=== PATIENT | female | born 1980 | race Caucasian/White ===

== ENCOUNTER 2019-05-19 09:06 | Emergency (ER) | payer SELFPAY ==
[~2019-05-19] VITALS: Ht 162.6 cm; Wt 72.6 kg
[2019-05-19 09:26] VITALS: BP 118/70
--- NOTE | 2019-05-19 10:08 | PHYS DOC ---
Past Medical History Past Medical History: No Pertinent History, Unknown Past Surgical History: Other Additional Past Surgical Histo: BLADDER MESH (2009) Alcohol Use: None Drug Use: None, Heroin Adult General Chief Complaint Chief Complaint: ABDOMINAL PAIN HPI HPI Patient is a 38 year old female who presents to the emergency department, via EMS with complaints of pelvic pain. Patient denies any irregular vaginal discharge, dysuria, increased urinary frequency, vaginal odor, hematuria, nausea, vomiting, diarrhea, chest pain, shortness of breath, or fever. Patient states she left [facility] AMA because she did not like her nurse. Patient states she had been admitted to to evaluate her bladder mesh, but she left before the testing was complete. She is unsure when her last menstrual period was, she is also unsure when her last bowel movement was. Patient currently rates her pain a 10 out of 10 on the pain scale and states that no thing makes the pain better or worse. Patient reports a history of methamphetamine use, states she last smoked methamphetamine 2 or 3 days ago. She also smokes cigarettes about half pack a day. She denies any alcohol use or other drug use. Review of Systems Review of Systems Constitutional: Denies fever or chills [] Eyes: Denies redness, or eye pain [] HENT: Denies nasal congestion or sore throat [] Respiratory: Denies cough or shortness of breath [] Cardiovascular: No additional information not addressed in HPI [] GI: Denies nausea, vomiting, bloody stools or diarrhea; reports pelvic pain[] : Denies dysuria, increased urinary frequency, foul smelling urine, hematuria, vaginal odor, or irregular vaginal discharge Musculoskeletal: reports low back pain Integument: Denies rash or skin lesions [] Neurologic: Denies headache, focal weakness or sensory changes [] Complete systems were reviewed and found to be within normal limits, except as documented in this note. Allergies Allergies Allergies Coded Allergies Type Severity Reaction Last Updated Verified Sulfa (Sulfonamide Antibiotics) Allergy Unknown Unknown 05/19/19 Yes Physical Exam Physical Exam Constitutional: Well developed, well nourished, no acute distress, non-toxic appearance, hyperverbal. [] HENT: Normocephalic, atraumatic, bilateral external ears normal, nose normal. [] Eyes: conjunctiva normal, no discharge. [] Neck: Normal range of motion, no stridor. [] Cardiovascular:Heart rate regular rhythm, no murmur [] Lungs & Thorax: Bilateral breath sounds clear to auscultation [] Abdomen: Bowel sounds normal, soft, suprapubic tenderness, no guarding, no rebound tenderness, no masses, no pulsatile masses. [] Skin: Warm, dry, no erythema, no rash. [] Back: No CVA tenderness. [] Extremities: No cyanosis, no clubbing, ROM intact, no edema. [] Neurologic: Alert and oriented X 3, no focal deficits noted. [] Psychologic: Affect paranoid, judgement normal Current Patient Data Vital Signs Vital Signs Date Time Temp Pulse Resp B/P (MAP) Pulse Ox O2 Delivery O2 Flow Rate FiO2 05/19/19 09:26 98.1 109 18 118/70 (86) 99 Room Air 98.1 Lab Values Laboratory Tests Test 05/19/19 09:30 05/19/19 10:24 Urine Collection Type Unknown Urine Color Guera Urine Clarity Clear Urine pH 5.0 Urine Specific [place] >=1.030 Urine Protein 30 mg/dL (NEG-TRACE) Urine Glucose (UA) Negative mg/dL (NEG) Urine Ketones (Stick) Trace mg/dL (NEG) Urine Blood Negative (NEG) Urine Nitrite Negative (NEG) Urine Bilirubin Negative (NEG) Urine Urobilinogen Dipstick 0.2 mg/dL (0.2 mg/dL) Urine Leukocyte Esterase Negative (NEG) Urine RBC 0 /HPF (0-2) Urine WBC 0 /HPF (0-4) Urine Bacteria 0 /HPF (0-FEW) Urine Opiates Screen Neg (NEG) Urine Methadone Screen Neg (NEG) Urine Barbiturates Neg (NEG) Urine Phencyclidine Screen Neg (NEG) Urine Amphetamine/Methamphetamine Pos (NEG) Urine Benzodiazepines Screen Neg (NEG) Urine Cocaine Screen Neg (NEG) Urine Cannabinoids Screen Neg (NEG) Urine Ethyl Alcohol Neg (NEG) Urine Test Negative (NEG) EKG EKG [] Radiology/Procedures Radiology/Procedures [] Course & Med Decision Making Course & Med Decision Making Pertinent Labs and Imaging studies reviewed. (See chart for details) 1055-pt left AMA [] Dragon Disclaimer Dragon Disclaimer This electronic medical record was generated, in whole or in part, using a voice recognition dictation system. Departure Departure Impression: Primary Impression: Left against medical advice Disposition: AGAINST MEDICAL ADVICE Condition: STABLE Referrals: NO PCP (PCP) PHYLLIS ESGURA CHILD CARE DIRECTOR May 19, 2019 10:08
[2019-05-19 10:17] LABS: BILIRUBIN,URINE NEGATIVE (NEG); CLARITY,URINE CLEAR; COLOR,URINE AMBER; NITRITE,URINE NEGATIVE (NEG); PROTEIN,URINE 30 mg/dL (NEG-TRACE); UROBILINOGEN,URINE 0.2 mg/dL (0.2 mg/dL)
[2019-05-19 10:23] LABS: BARBITURATES NEG (NEG); BENZODIAZEPINES NEG (NEG); CANNABINOIDS NEG (NEG); COCAINE NEG (NEG); METHADONE NEG (NEG); OPIATES NEG (NEG); PHENCYCLIDINE NEG (NEG)
[2019-05-19 10:24] LABS: AMPHETAMINE/METHAMPHETAMINE POS (NEG)
[2019-05-19 10:26] LABS: BACTERIA,URINE 0 /HPF (0-FEW); RBC,URINE 0 /HPF (0-2); WBC,URINE 0 /HPF (0-4)
[2019-05-19 10:36] LABS: U PREG PATIENT NEGATIVE (NEG)
== END 2019-05-19 10:55 | disposition left against medical advice (07) ==
LOC: ER 09:06
DX: R10.2 Pelvic and perineal pain (principal); M54.5 Low back pain; F15.10 Other stimulant abuse, uncomplicated; F17.210 Nicotine dependence, cigarettes, uncomplicated; Z88.2 Allergy status to sulfonamides
CPT/HCPCS: 80307; 81001; 81025; 99284

== ENCOUNTER 2021-03-29 18:08 | Inpatient (IN) | payer OTHER ==
[~2021-03-29] VITALS: Ht 165.1 cm; Wt 71.2 kg
[2021-03-29] MEDS ORDERED: MULTIVIT INFUSN,ADULT 4,VIT K 10 ML, THIAMINE INJ 100 MG, FOLIC ACID INJ 1 MG in IV NOR... IV ONE (18:30)
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
[2021-03-29 19:36] LABS: BILIRUBIN,URINE NEGATIVE (NEG); CLARITY,URINE CLEAR; COLOR,URINE YELLOW; NITRITE,URINE NEGATIVE (NEG); PROTEIN,URINE NEGATIVE (NEG-TRACE); UROBILINOGEN,URINE 0.2 mg/dL (0.2 mg/dL)
[2021-03-29 19:42] LABS: BARBITURATES NEG (NEG); BENZODIAZEPINES POS (NEG); CANNABINOIDS POS (NEG); COCAINE NEG (NEG); METHADONE NEG (NEG); OPIATES NEG (NEG); PHENCYCLIDINE NEG (NEG)
[2021-03-29 19:43] LABS: BACTERIA,URINE 0 /HPF (0-FEW); RBC,URINE 0 /HPF (0-2); WBC,URINE OCC /HPF (0-4)
[2021-03-29 19:45] LABS: AMPHETAMINE/METHAMPHETAMINE NEG (NEG)
[2021-03-29 19:55] LABS: BASO # 0.1 x10^3/uL (0.0-0.2); BASO % 1 % (0-3); EOS # 0.2 x10^3/uL (0.0-0.7); EOS % 1 % (0-3); HEMATOCRIT 36.7 % (36.0-47.0); HEMOGLOBIN 12.2 g/dL (12.0-15.5); LYMPH # 4.2 x10^3/uL (1.0-4.8); LYMPH % 24 % (24-48); MEAN CORPUSCULAR HEMOGLOBIN 19 pg (25-35); MEAN CORPUSCULAR HGB CONC 33 g/dL (31-37); MEAN CORPUSCULAR VOLUME 57 fL (79-100); MONO # 1.4 x10^3/uL (0.0-1.1); MONO % 8 % (0-9); NEUT # 11.8 x10^3/uL (1.8-7.7); NEUT % 67 % (31-73); PLATELET COUNT 576 x10^3/uL (140-400); RED BLOOD COUNT 6.47 x10^6/uL (3.50-5.40); WHITE BLOOD COUNT 17.7 x10^3/uL (4.0-11.0)
[2021-03-29 20:09] LABS: ACETAMIN < 2 mcg/ml (10-30); SALIC < 2.8 mg/dL (2.8-20.0)
[2021-03-29 20:10] LABS: ALBUMIN 4.4 g/dL (3.4-5.0); ALBUMIN/GLOBULIN RATIO 1.1 (1.0-1.7); CALCIUM 9.1 mg/dL (8.5-10.1); CREATININE 0.7 mg/dL (0.6-1.0); GFR 91.8; TOTAL PROTEIN 8.3 g/dL (6.4-8.2)
[2021-03-29 20:19] LABS: CREATINE KINASE 33 U/L (26-192)
[2021-03-29] MEDS ORDERED: POTASSIUM CHLORIDE 10 MEQ TABLET.ER. PO ONE (20:30)
--- NOTE | 2021-03-29 20:30 | RAD ---
EXAM: Chest, single view. HISTORY: Altered mental status. COMPARISON: None. FINDINGS: A frontal view of the chest is obtained. There is no infiltrate, protrusion or pneumothorax . The heart is normal in size. There are few calcified granulomas. IMPRESSION: No acute pulmonary finding. Electronically signed by: Teri Abel MD (03/29/2021 8:28 PM) [facility]
--- NOTE | 2021-03-29 20:31 | RAD ---
EXAM: Head CT without contrast. HISTORY: Altered mental status. TECHNIQUE: Computed tomographic images of the head were obtained without contrast. *One or more of the following individualized dose reduction techniques were utilized for this examina tion: 1. Automated exposure control. 2. Adjustment of the mA and/or kV according to patient size. 3. Use of iterative reconstruction technique. COMPARISON: 03/23/2010. FINDINGS: There is no acute or subacute extra-axial or intraparenchymal hemorrhage. There is no mass effect or midline shift. There is no hydrocephalus. The glaser-white matter differentiation pattern is intact. There is moderate to severe left maxillary sinus mucosal thickening, partially included on the field- of-view. The mastoid air cells are clear. There is no suspicious calvarial lesion. IMPRESSION: No acute intracranial finding. Note is made that MRI is more sensitive for acute infarcti on. Electronically signed by: Teri Abel MD (03/29/2021 8:28 PM) [facility]
[2021-03-29 20:37] LABS: HYPOCHROMIA MARKED; MICROCYTOSIS MARKED; PLT ESTIMATE INCREASED (ADEQUATE)
--- NOTE | 2021-03-29 20:59 | EKG ---
[facility] [address] [place] [address] Test Date: 2021-03-29 Test Time: 20:43:09 Pat Name: DARIUSZ MCDERMOTT Department: Room: Gender: F Typing Section Chief: : 1980 Requested By: RY CUMMINGS Order Number: [id number] Reading MD: Measurements Intervals [place] Rate: 71 P: 57 IN: 136 QRS: 44 QRSD: 86 T: 64 QT: 406 QTc: 441 Interpretive Statements SINUS RHYTHM R-S TRANSITION ZONE IN V LEADS DISPLACED TO THE RIGHT OTHERWISE NORMAL ECG RI6.02 No previous ECG available for comparison
[2021-03-29] MEDS ORDERED: ONDANSETRON PF 4 MG/2 ML VIAL. IV PRN (23:30)
[2021-03-29] MEDS ORDERED: ZIPRASIDONE IM 20 MG VIAL. IM ONE (23:45)
[2021-03-30] MEDS ORDERED: POTASSIUM CHLORIDE 10MEQ 100 ML IV SCH
[2021-03-30 02:05] VITALS: BP 96/60
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
[2021-03-30 07:00] VITALS: BP 106/68
[2021-03-30] MEDS: POTASSIUM CHLORIDE 20 MEQ TABLET.ER. PO SCH ×2 (08:41→10:19)
[2021-03-30] MEDS: FAMOTIDINE 20 MG TABLET. PO SCH ×2 (08:41→20:58)
[2021-03-30 11:00] VITALS: BP 110/68
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
[2021-03-30 15:00] VITALS: BP 114/73
[2021-03-30 19:00] VITALS: BP 102/62
[2021-03-30 23:03] VITALS: BP 125/85
[2021-03-31 03:11] VITALS: BP 108/67
[2021-03-31 07:30] VITALS: BP 115/84
[2021-03-31] MEDS: FAMOTIDINE 20 MG TABLET. PO SCH (08:27)
[2021-03-31] MEDS ORDERED: POTASSIUM CHLORIDE 20 MEQ TABLET.ER. PO ONE (10:30)
[2021-03-31] MEDS ORDERED: FAMO20TA5 PO (10:57)
[2021-03-31 11:00] VITALS: BP 107/69
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
--- NOTE | 2021-03-31 12:45 | NUR ---
SW following. Discussed with RN, pt from home with boyfriend, room air, cardiac diet. Pt refusing labs and IV, wants to discharge. Ramy (PAT) met with pt, pt feels depressed but no SI, feels safe going home. Ramy reported during the conversation pt's eyes would sometimes glaze over and she would start muttering to herself. Pt has been current with [facility] in the past. Pt left [facility] and [facility] resources for RN to give to pt's mother who is coming to collect her. Discharge order for home with self care. RN advised no SW needs at this time.
--- NOTE | 2021-03-31 13:24 | NUR ---
Pt got read discharge packet and had no questions/concerns. Heart monitor was taken off. Pt was stable when leaving unit. This RN gave pt's mother her discharge paperwork.
== END 2021-03-31 13:10 | disposition home or self-care (01) | DRG 640 ==
LOC: ER 18:08 → 6 SOUTH 23:43
PROVIDERS: ADMIT Internal Medicine; ATTEND Internal Medicine
DX: E87.6 Hypokalemia (principal); G93.41 Metabolic encephalopathy; D72.829 Elevated white blood cell count, unspecified; F32.9 Major depressive disorder, single episode, unspecified; R41.82 Altered mental status, unspecified; F41.9 Anxiety disorder, unspecified; F19.10 Other psychoactive substance abuse, uncomplicated; Z82.49 Family history of ischemic heart disease and other diseases of the circulatory system; Z99.3 Dependence on wheelchair; Z88.2 Allergy status to sulfonamides
CPT/HCPCS: 36415; 70450; 71045; 80053; 80307; 80329; 81001; 81025; 82140; 82553; 83605; 83735; 84484; 85025; 93005; 96365; 96372; 96375; G0480; J2060; J3411; J3486; J3490; J7030; 99285-25; G0378

== ENCOUNTER 2021-10-24 09:28 | Inpatient (IN) | payer OTHER ==
[~2021-10-24] VITALS: Ht 167.6 cm; Wt 91.9 kg
[~2021-10-24 09:28] MED LIST: FAMO20TA5 PO
[2021-10-24] MEDS ORDERED: IV NORMAL SALINE 1000ML BAG 1,000 ML IV ONE (10:00)
[2021-10-24] MEDS ORDERED: HALOPERIDOL LACTATE 5 MG/ML VIAL. ONE (10:09)
[2021-10-24] MEDS ORDERED: HALOPERIDOL LACTATE 5 MG/ML VIAL. IM ONE (10:15)
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
[2021-10-24 11:54] LABS: BASO # 0.1 x10^3/uL (0.0-0.2); BASO % 1 % (0-3); EOS # 0.2 x10^3/uL (0.0-0.7); EOS % 1 % (0-3); HEMATOCRIT 37.7 % (36.0-47.0); HEMOGLOBIN 12.2 g/dL (12.0-15.5); LYMPH # 2.5 x10^3/uL (1.0-4.8); LYMPH % 14 % (24-48); MEAN CORPUSCULAR HEMOGLOBIN 19 pg (25-35); MEAN CORPUSCULAR HGB CONC 32 g/dL (31-37); MEAN CORPUSCULAR VOLUME 60 fL (79-100); MONO # 1.4 x10^3/uL (0.0-1.1); MONO % 7 % (0-9); NEUT # 14.5 x10^3/uL (1.8-7.7); NEUT % 77 % (31-73); PLATELET COUNT 390 x10^3/uL (140-400); RED CELL DISTRIBUTION WIDTH 14.6 % (11.5-14.5); WHITE BLOOD COUNT 18.7 x10^3/uL (4.0-11.0)
[2021-10-24 12:08] LABS: CALCIUM 8.9 mg/dL (8.5-10.1); CREATININE 0.7 mg/dL (0.6-1.0); GFR 91.8
[2021-10-24 12:12] LABS: CLARITY,URINE CLEAR; COLOR,URINE ORANGE
[2021-10-24 12:16] LABS: ACETAMIN < 2.0 mcg/ml (10-30); ETHANOL < 10 mg/dL (0-10); POTASSIUM 2.8 mmol/L (3.5-5.1); SALIC 3.6 mg/dL (2.8-20.0)
[2021-10-24 12:17] LABS: BARBITURATES NEG (NEG); BENZODIAZEPINES NEG (NEG); CANNABINOIDS POS (NEG); COCAINE NEG (NEG); METHADONE NEG (NEG); OPIATES NEG (NEG); PHENCYCLIDINE NEG (NEG)
[2021-10-24 12:18] LABS: AMPHETAMINE/METHAMPHETAMINE POS (NEG)
[2021-10-24 12:35] LABS: BACTERIA,URINE MODERATE /HPF (0-FEW); HYALINE CASTS, URINE MODERATE /HPF; RBC,URINE 0 /HPF (0-2)
[2021-10-24 12:39] LABS: ALBUMIN 4.2 g/dL (3.4-5.0); DIRECT BILIRUBIN 0.7 mg/dL (0.0-0.2); TOTAL PROTEIN 8.5 g/dL (6.4-8.2)
[2021-10-24 12:58] LABS: % BASOS 1 % (0-3); % EOS 1 % (0-5); % LYMPHS 20 % (24-48); % MONOS 4 % (0-10); % SEGS 74 % (35-66); PLT ESTIMATE ADEQUATE (ADEQUATE)
[2021-10-24 12:59] LABS: HYPOCHROMIA PRESENT; MICROCYTOSIS PRESENT
[2021-10-24] MEDS ORDERED: PIPERACILLIN/TAZOBACTAM 3.375 GM in IV NORMAL SALINE 50ML 50 ML IV ONE (13:00)
[2021-10-24] MEDS ORDERED: ACETAMINOPHEN 325 MG TABLET. PO PRN (13:15)
--- NOTE | 2021-10-24 14:17 | RAD ---
EXAMINATION: Chest radiograph. VIEWS: 1 COMPARISON: 10/29/2020 INDICATION:40 years, Female, Altered mental status. FINDINGS: Low lung volume, may accentuate cardiac silhouette and pulmonary vascularity. Normal cardiomediastina l silhouette. Similar calcified granulomas in the left lung. No focal consolidation. No pleural effus ion or pneumothorax. No acute osseous process. IMPRESSION: No acute cardiopulmonary process. Electronically signed by: Clover Walters MD (10/24/2021 2:15 PM) [facility]
[2021-10-24] MEDS: POTASSIUM CHLORIDE 20MEQ 100 ML IV SCH ×2 (14:41→21:40)
--- NOTE | 2021-10-24 14:51 | EKG ---
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
[2021-10-24] MEDS ORDERED: HALOPERIDOL 2 MG TABLET. PO PRN (16:30)
[2021-10-24 17:43] VITALS: BP 124/67
[2021-10-24 19:35] VITALS: BP 99/66
[2021-10-24] MEDS: ENOXAPARIN 40 MG/0.4 ML SYRINGE. SQ SCH (21:00)
[2021-10-24] MEDS: risperiDONE 1 MG TABLET. PO SCH (21:39)
[2021-10-24] MEDS: cefTRIAXone IV Push 1 GM VIAL. IVP SCH (22:29)
[2021-10-24 23:28] VITALS: BP 96/64
[2021-10-25 05:00] LABS: BASO % 1 % (0-3); EOS # 0.4 x10^3/uL (0.0-0.7); EOS % 5 % (0-3); HEMATOCRIT 35.1 % (36.0-47.0); LYMPH # 2.4 x10^3/uL (1.0-4.8); LYMPH % 24 % (24-48); MEAN CORPUSCULAR HEMOGLOBIN 19 pg (25-35); MEAN CORPUSCULAR HGB CONC 31 g/dL (31-37); MEAN CORPUSCULAR VOLUME 62 fL (79-100); MONO # 0.9 x10^3/uL (0.0-1.1); MONO % 9 % (0-9); NEUT # 6.2 x10^3/uL (1.8-7.7); NEUT % 62 % (31-73); PLATELET COUNT 303 x10^3/uL (140-400); RED BLOOD COUNT 5.67 x10^6/uL (3.50-5.40)
[2021-10-25 05:29] LABS: SALIC 5.8 mg/dL (2.8-20.0)
[2021-10-25 05:31] LABS: ALBUMIN 3.6 g/dL (3.4-5.0); ALBUMIN/GLOBULIN RATIO 0.9 (1.0-1.7); CALCIUM 8.2 mg/dL (8.5-10.1); CREATININE 0.6 mg/dL (0.6-1.0); GFR 109.6; TOTAL BILIRUBIN 1.1 mg/dL (0.2-1.0); TOTAL PROTEIN 7.5 g/dL (6.4-8.2)
[2021-10-25 11:01] VITALS: BP 93/53
[2021-10-25] MEDS ORDERED: POTASSIUM CHLORIDE 20 MEQ TABLET.ER. PO ONE ×2 (13:00→17:30)
--- NOTE | 2021-10-25 14:04 | PDOC ---
[employer] PROGRESS NOTE Date of Service DOS: DATE: 10/25/21 TIME: 14:03 Chief Complaint Chief Complaint acute psychosis, schizophrenia, not on meds recently meth abuse , THC abuse toxic encephalopathy UTI, SIRS sepsis, zosyn started, urine too dirty microcytic red cells, likely thalassemia obese, BMI 31 History of Present Illness History of Present Illness try to stop the 1:1 and try to DC if able pt and OT ordered, weak, fall risk Vitals/I&O Vitals/I&O: Vital Signs Date Time Temp Pulse Resp B/P (MAP) Pulse Ox O2 Delivery O2 Flow Rate FiO2 10/25/21 11:01 93 16 93/53 (66) 93 Room Air 10/25/21 09:58 97.1 97.1 I & O 10/24/21 10/24/21 10/25/21 15:00 23:00 07:00 Intake Total 240 ml 1650 ml Balance 240 ml 1650 ml Physical Exam Physical Exam: face appears brighter, she is coherent of speech, much better General: Alert, Oriented X3, Cooperative, No acute distress, Other (obtunded, then confused when awakened) Heart: Regular rate Lungs: Clear, Other Extremities: No clubbing, No edema Skin: No rashes, No significant lesion Labs Labs: Laboratory Tests Test 10/25/21 04:00 White Blood Count 10.0 x10^3/uL (4.0-11.0) Red Blood Count 5.67 x10^6/uL (3.50-5.40) Hemoglobin 11.0 g/dL (12.0-15.5) Hematocrit 35.1 % (36.0-47.0) Mean Corpuscular Volume 62 fL (79-100) Mean Corpuscular Hemoglobin 19 pg (25-35) Mean Corpuscular Hemoglobin Concent 31 g/dL (31-37) Red Cell Distribution Width 15.0 % (11.5-14.5) Platelet Count 303 x10^3/uL (140-400) Neutrophils (%) (Auto) 62 % (31-73) Lymphocytes (%) (Auto) 24 % (24-48) Monocytes (%) (Auto) 9 % (0-9) Eosinophils (%) (Auto) 5 % (0-3) Basophils (%) (Auto) 1 % (0-3) Neutrophils # (Auto) 6.2 x10^3/uL (1.8-7.7) Lymphocytes # (Auto) 2.4 x10^3/uL (1.0-4.8) Monocytes # (Auto) 0.9 x10^3/uL (0.0-1.1) Eosinophils # (Auto) 0.4 x10^3/uL (0.0-0.7) Basophils # (Auto) 0.0 x10^3/uL (0.0-0.2) Prothrombin Time 14.0 SEC (11.7-14.0) Prothromb Time International Ratio 1.1 (0.8-1.1) Activated Partial Thromboplast Time 34 SEC (24-38) Sodium Level 138 mmol/L (136-145) Potassium Level 3.0 mmol/L (3.5-5.1) Chloride Level 101 mmol/L (98-107) Carbon Dioxide Level 27 mmol/L (21-32) Anion Gap 10 (6-14) Blood Urea Nitrogen 13 mg/dL (7-20) Creatinine 0.6 mg/dL (0.6-1.0) Estimated GFR (Cockcroft-Gault) 109.6 BUN/Creatinine Ratio 22 (6-20) Glucose Level 91 mg/dL (70-99) Calcium Level 8.2 mg/dL (8.5-10.1) Total Bilirubin 1.1 mg/dL (0.2-1.0) Aspartate Amino Transf (AST/SGOT) 44 U/L (15-37) Alanine Aminotransferase (ALT/SGPT) 55 U/L (14-59) Alkaline Phosphatase 138 U/L (46-116) Total Protein 7.5 g/dL (6.4-8.2) Albumin 3.6 g/dL (3.4-5.0) Albumin/Globulin Ratio 0.9 (1.0-1.7) Salicylates Level 5.8 mg/dL (2.8-20.0) Salicylate Last Dose Date Unknown Salicylate Last Dose Time Unknown Assessment and Plan Assessmemt and Plan Problems Medical Problems: (1) Amphetamine abuse Status: Acute (2) Hypokalemia Status: Acute (3) Marijuana abuse Status: Acute (4) Psychosis Status: Acute Comment Review of Relevant I have reviewed the following items bib (where applicable) has been applied. Medications: Current Medications Medications (Trade) Dose Ordered Sig/Flo Route PRN Reason Start Time Stop Time Status Last Admin Dose Admin Risperidone (RisperDAL) 1 mg HS PO 10/24/21 21:00 10/24/21 21:39 Lorazepam (Ativan Inj) 1 mg PRN Q4HRS PRN IVP ANXIETY / AGITATION 10/24/21 16:30 10/24/21 22:12 Ceftriaxone Sodium (Rocephin) 1 gm Q24H IVP 10/24/21 18:00 10/24/21 22:29 Potassium Chloride (Klor-Con) 40 meq 1X ONCE PO 10/25/21 13:00 10/25/21 13:01 DC 10/25/21 13:28 Justifications for Admission Other Justification MARICHUY RASHEED MD Oct 25, 2021 14:04
[2021-10-25 15:00] VITALS: BP 100/55
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
[2021-10-25] MEDS: cefTRIAXone IV Push 1 GM VIAL. IVP SCH (17:17)
[2021-10-25 19:00] VITALS: BP 102/56
[2021-10-25] MEDS: risperiDONE 1 MG TABLET. PO SCH (20:17)
[2021-10-25] MEDS: ENOXAPARIN 40 MG/0.4 ML SYRINGE. SQ SCH (20:17)
[2021-10-25] MEDS: LACTOBACILLUS RHAMNOSUS GG 1 CAPSULE. PO SCH (20:17)
--- NOTE | 2021-10-25 22:44 | NUR ---
Assumed care of the patient A&OX4 in bed resting quietly watching television. Denies any voices or any discomfort. Refused to take Lovenox injection just stated. " I am not taking that shot." Call valdez is in reach not acute distress noted will continue to monitor.
[2021-10-25 23:00] VITALS: BP 96/58
[2021-10-26 03:00] VITALS: BP 88/61
[2021-10-26 07:00] VITALS: BP 89/55
[2021-10-26] MEDS: LACTOBACILLUS RHAMNOSUS GG 1 CAPSULE. PO SCH (10:15)
[2021-10-26 11:00] VITALS: BP 100/52
[2021-10-26] MEDS ORDERED: RISP1TAB88 PO (12:36)
--- NOTE | 2021-10-26 12:38 | PDOC3 ---
Discharge Summary Visit Information Date of Admission: Oct 24, 2021 Date of Discharge: Oct 26, 2021 Final Diagnosis acute psychosis, schizophrenia, not on meds recently meth abuse , THC abuse toxic encephalopathy microcytic red cells, thalassemia obese, BMI 31 History of Present Illness History of Present Illness try to stop the 1:1 and try to DC if able Problems Medical Problems: (1) Amphetamine abuse Status: Acute (2) Hypokalemia Status: Acute (3) Marijuana abuse Status: Acute (4) Psychosis Status: Acute Brief Hospital Course Allergies Allergies Coded Allergies Type Severity Reaction Last Updated Verified Sulfa (Sulfonamide Antibiotics) Allergy Intermediate 03/30/21 Yes Vital Signs Vital Signs Date Time Temp Pulse Resp B/P (MAP) Pulse Ox O2 Delivery O2 Flow Rate FiO2 10/26/21 08:00 Room Air 10/26/21 07:00 98.2 67 16 89/55 (66) 100 98.2 Lab Results Laboratory Tests Test 10/24/21 13:56 10/25/21 04:00 Lactic Acid Level 1.0 mmol/L (0.4-2.0) White Blood Count 10.0 x10^3/uL (4.0-11.0) Red Blood Count 5.67 x10^6/uL (3.50-5.40) Hemoglobin 11.0 g/dL (12.0-15.5) Hematocrit 35.1 % (36.0-47.0) Mean Corpuscular Volume 62 fL (79-100) Mean Corpuscular Hemoglobin 19 pg (25-35) Mean Corpuscular Hemoglobin Concent 31 g/dL (31-37) Red Cell Distribution Width 15.0 % (11.5-14.5) Platelet Count 303 x10^3/uL (140-400) Neutrophils (%) (Auto) 62 % (31-73) Lymphocytes (%) (Auto) 24 % (24-48) Monocytes (%) (Auto) 9 % (0-9) Eosinophils (%) (Auto) 5 % (0-3) Basophils (%) (Auto) 1 % (0-3) Neutrophils # (Auto) 6.2 x10^3/uL (1.8-7.7) Lymphocytes # (Auto) 2.4 x10^3/uL (1.0-4.8) Monocytes # (Auto) 0.9 x10^3/uL (0.0-1.1) Eosinophils # (Auto) 0.4 x10^3/uL (0.0-0.7) Basophils # (Auto) 0.0 x10^3/uL (0.0-0.2) Prothrombin Time 14.0 SEC (11.7-14.0) Prothromb Time International Ratio 1.1 (0.8-1.1) Activated Partial Thromboplast Time 34 SEC (24-38) Sodium Level 138 mmol/L (136-145) Potassium Level 3.0 mmol/L (3.5-5.1) Chloride Level 101 mmol/L (98-107) Carbon Dioxide Level 27 mmol/L (21-32) Anion Gap 10 (6-14) Blood Urea Nitrogen 13 mg/dL (7-20) Creatinine 0.6 mg/dL (0.6-1.0) Estimated GFR (Cockcroft-Gault) 109.6 BUN/Creatinine Ratio 22 (6-20) Glucose Level 91 mg/dL (70-99) Calcium Level 8.2 mg/dL (8.5-10.1) Total Bilirubin 1.1 mg/dL (0.2-1.0) Aspartate Amino Transf (AST/SGOT) 44 U/L (15-37) Alanine Aminotransferase (ALT/SGPT) 55 U/L (14-59) Alkaline Phosphatase 138 U/L (46-116) Total Protein 7.5 g/dL (6.4-8.2) Albumin 3.6 g/dL (3.4-5.0) Albumin/Globulin Ratio 0.9 (1.0-1.7) Salicylates Level 5.8 mg/dL (2.8-20.0) Salicylate Last Dose Date Unknown Salicylate Last Dose Time Unknown Brief Hospital Course Ms. Hayward is a 41 old admit with acute psychosis, meth and THC use, and off her home meds Discharge Information Condition at Discharge: Improved Follow Up: Weeks Disposition/Orders: D/C to Home Scheduled Famotidine (Famotidine) 20 Mg Tablet, 20 MG PO BID for gerd for 30 Days, #60 Prescribed by: VALERIE DOWELL on 03/31/21 1057 Risperidone (Risperidone) 1 Mg Tablet, 1 MG PO HS for sleep, #30 Prescribed by: MARICHUY RASHEED on 10/26/21 1236 Patient Instructions Patient Instructions pt seen face to face < 30 MIN Justicifation of Admission Dx: Justifications for Admission: Justification of Admission Dx: Yes (PSYCHOSIS) MARICHUY RASHEED MD Oct 26, 2021 12:38
--- NOTE | 2021-10-26 15:31 | NUR ---
Discharge Note: GUILLE MCDERMOTT [place] Discharge instructions and discharge home medications reviewed with the patient and a copy given. All questions have been answered and understanding verbalized. The following instructions and handouts were given: Prescription for risperidone. Home meds as directed. Follow up with [facility] for continuity of care. Follow up with PCP in a week. Discontinued lines and drains: peripheral IV intact, patient tolerated removal, no complications noted. Patient discharged to home with self care via wheelchair on room air accompanied by the patient's mom at 1505.
== END 2021-10-26 15:05 | disposition home or self-care (01) | DRG 871 ==
LOC: ER 09:28 → 5 NORTH 14:54 → ED HOLD 14:54 → 5 NORTH 17:19
PROVIDERS: ADMIT Internal Medicine; ATTEND Internal Medicine
DX: A41.9 Sepsis, unspecified organism (principal); G92.9 Unspecified toxic encephalopathy; N39.0 Urinary tract infection, site not specified; D56.9 Thalassemia, unspecified; E66.9 Obesity, unspecified; E87.6 Hypokalemia; F12.10 Cannabis abuse, uncomplicated; F15.10 Other stimulant abuse, uncomplicated; F17.210 Nicotine dependence, cigarettes, uncomplicated; F20.9 Schizophrenia, unspecified; Z68.31 Body mass index [BMI] 31.0-31.9, adult; K21.9 Gastro-esophageal reflux disease without esophagitis; Z20.822 Contact with and (suspected) exposure to COVID-19; Z88.2 Allergy status to sulfonamides
CPT/HCPCS: 36415; 71045; 80048; 80053; 80076; 80307; 80329; 81001; 81025; 83605; 83690; 83735; 84484; 85007; 85025; 85610; 85730; 87040; 87086; 87426; 93005; 96365; 96366; 96372; G0480; J0696; J1630; J2060; J2543; J3480; J7030; U0003; U0005; 99285-25; G0378